=== PATIENT | female | born 1960 | race Caucasian/White ===

== ENCOUNTER → 2020-11-13 15:50 | Outpatient (BNVA) | payer SELFPAY | PROVIDERS: Referring Provider Nurse Practitioner Family; Visit Provider Specialist | DX: M25.551 Pain in right hip (principal); Z96.642 Presence of left artificial hip joint | CPT/HCPCS: 73502 ==

== ENCOUNTER 2020-12-06 15:19 | Outpatient (CLI) | payer SELFPAY ==
--- NOTE | 2020-12-06 15:24 | MR_ITS ---
WS: [id number] MRI RIGHT HIP NONCONTRAST TECHNIQUE: Axial T1, axial T2 fat sat, coronal T1, coronal STIR, sagittal T2 fat sat, sagittal T1, an d sagittal T2 fat sat, of both hips. CLINICAL INFORMATION: hip pain COMPARISON: November 13, 2020 FINDINGS: Postoperative changes left JAVIER. Advanced osteoarthritis right hip with joint space narrowing. Slight hypertrophic spurring about the right acetabulum. Minimal subchondral cystic change involving the femoral head and adjacent acetabulum. No articular surface edema right femoral head. No evidence of avascular necrosis or subchondral collapse. A few small subchondral erosions involving the femoral head and neck. No significant joint effusion. Right proximal femoral shaft is normal in appearance. Normal bone julien ow signal involving the bony pelvis and sacrum. Mild degenerative arthritis sacroiliac joints. Tiny T 2 hyperintense lesion in the right ilium likely incidental degenerative cyst or hemangioma measuring 7 mm. No inguinal lymphadenopathy. Normal pubic rami. Sigmoid diverticulosis. MR/MR hip RT wo con* [id number] IMPRESSION: 1. Moderate to advanced degenerative arthritis right hip with joint space narr owing. 2. A few subchondral degenerative cysts involving the right femoral head and n klaudia. No evidence of avascular necrosis or subchondral collapse. No significant edema. 3. Normal right femoral neck and proximal shaft. 4. Prior postoperative changes left JAVIER. 5. No other significant findings.
== END 2020-12-06 15:20 | disposition home or self-care (01) ==
LOC: RADSHAW 15:21
PROVIDERS: PCP Nurse Practitioner Family; Visit Provider Specialist
DX: Z96.641 Presence of right artificial hip joint (principal); M16.11 Unilateral primary osteoarthritis, right hip
CPT/HCPCS: 73721

== ENCOUNTER → 2020-12-14 00:01 | Outpatient (BNVA) | payer SELFPAY | PROVIDERS: PCP Nurse Practitioner Family; Visit Provider Specialist | DX: M16.11 Unilateral primary osteoarthritis, right hip (principal); Z20.822 Contact with and (suspected) exposure to COVID-19 | CPT/HCPCS: 80053; 81000; 85025; 87635 ==

== ENCOUNTER 2020-12-19 15:49 | Observation (INO) | payer SELFPAY ==
[2020-12-14 13:36] VITALS: BMI 28.6
--- NOTE | 2020-12-14 15:49 | ANES.PREANE2 ---
Pre-Anesthetic Assessment Pre-Anesthetic Assessment: Height/Weight: Height 1.7 m Weight 83.007 kg Preop Diagnosis: Primary osteoarthritis right hip Proposed Procedure: Operation Date: 12/19/20 13:05 Proposed Procedures p Total Hip Arthroplasty 83556 M16.9(Right) - Enma Sinclair MD Was Beta Chanelle taken within 24 hours: N/A Was Clonidine taken within 24 hours: N/A Social: Social History: No alcohol and No tobacco Exam: Pre-Anes Outpt Exam: alert, oriented x 3 and clear to auscultation bilaterally Airway: Submandibular: WNL Cervical ROM: WNL MP: 1 Dentition: Full History/ROS: Other Pulmonary: Pulmonary: None reported CV/HEM: CV/HEM: HTN : : None reported Hepatic: Hepatic: None reported GI: GI: None reported Metabolic: Metabolic: Thyroid Musc/skel: Musc/skel: OA/DJD Neuropsych: Neuropsych: None reported Anesthetic Plan: ASA status: 2 Anesthesia: Regional (specify below) (spinal anesthesia) Risk of > 500 ml blood loss (7ml/kg in children): No PFSH Anesthesia PFSH: Medical History Autoimmune disorder Hypertension Hypothyroidism Surgical History H/O total hip arthroplasty Left H/O: hysterectomy Social History Smoking and tobacco status: never smoked Data Anesthesia CBC & Chem 7: 12/14/20 13:59 Cardiac Studies: No Data to Display
[2020-12-19] VITALS (14 sets, daily range): BP systolic 106–180; BP diastolic 57–116; PULSE 53–79; RESP 12–22; TEMP 35.7–37.2; O2SAT 93–100
[2020-12-19] MEDS: sodium chloride 0.9% 1,000 ML 30 ML IV (12:37)
[2020-12-19] MEDS: acetaminophen 1,000 MG/100 ML PIGGYBACK 400 MG IV ×2 (12:38→20:13)
[2020-12-19] MEDS: CELEcoxib 100 mg Capsule 400 MG PO (12:50)
[2020-12-19] MEDS: vancomycin 1,000 MG in sodium chloride 0.9% 250 ML 250 MG IV (13:01)
--- NOTE | 2020-12-19 13:04 | P.ANESUD_ITS ---
Pre-Anesthetic Update Pre-Anesthetic Assessment: Date of Surgery/Procedure: 12/19/20 Preop Serina gnosis: Primary osteoarthritis right hip Proposed Procedure: Operation Date: 12/19/20 12:30 Proposed Procedures p Total Hip Arthroplasty 38597 M16.9(Right) - Enma Sinclair MD Any changes to Pre-Anesthetic Assessment?: No Last Intake: Intake Last Liquid Date 12/18/20 Last Liquid Time 20:00 Last Solid Date 12/18/20 Last Solid Time 18:00 Vitals: Temperature 97.5 F L 12/19/20 12:24 Temperature Source Temporal Artery S can 12/19/20 12:24 Pulse Rate 71 12/19/20 12:24 Respiratory Rate 18 12/19/20 12:24 Blood Pressure 180/116 12/19/20 12:24 Blood Pressure Luz Maria n 137 12/19/20 12:24 Pulse Oximetry 97 12/19/20 12:24 Oxygen Delivery Me thod 12/19/20 12:25 Exam: Pre-Anes Outpt Exam: alert, oriented x 3 and clear to auscultation bilaterally Cardiac Studies: No Data to Display
--- NOTE | 2020-12-19 13:48 | P.HPUD_ITS ---
Surgery/Procedure H&P Update DATE OF PROCEDURE: December 19, 2020 DATE H&P PERFORMED: 12/14/20 H&P UPDATE INFORMATION: I have reviewed H&P completed within last 30 days, I have examined patient prior to procedure, No changes to prior documentation and H&P is in [facility] EMR on date indicated PREOP DIAGNOSIS: Primary osteoarthritis right hip PLANNED PROCEDURE: Operation Date: 12/19/20 12:30 Proposed Procedures p Total Hip Arthroplasty 87480 M16.9(Right) - Enma Sincalir MD Related Problem List Diagnoses (1) Osteoarthritis of right hip: Qualifiers: Osteoarthritis type: primary Qualified Code(s): M16.11 - Unilateral primary osteoarthritis, right hip
[2020-12-19 14:59] LABS: Add Urine Microscopic? NO; Charge for UA Resulting for Rev
[2020-12-19] MEDS: vancomycin 1,000 MG SDV 1000 MG XX (15:04)
[2020-12-19] MEDS: vancomycin 1,000 MG SDV 1000 MG IRRIGATION (15:05)
[2020-12-19 15:11] LABS: Bilirubin Urine Neg (Negative); Blood Urine Neg (Negative); Glucose Urine UA Norm (Normal); Ketones Urine Negative (Negative); Leukocyte Esterase Urine Negative (Negative); Nitrate Urine Negative (Negative); Protein Urine Neg (Negative); Specific Gravity, Urine 1.005 (1.005-1.030); Sulfosalicylic Acid Urine Negative (Negative); Urine Appearance Clear (CLEAR); Urine Color Straw (Yellow); Urobilinogen Urine Norm (Negative); pH Urine 8 (5-7)
--- NOTE | 2020-12-19 16:50 | XR_ITS ---
WS: [id number] XR pelvis 1-2V* [id number] REASON FOR EXAM: S/P JAVIER FINDINGS: Total right hip arthroplasty. The components of the arthroplasty are in proper position and alignment. No bony abnormality. XR/XR pelvis 1-2V* [id number] IMPRESSION: Total right hip arthroplasty without abnormality.
--- NOTE | 2020-12-19 16:52 | PM.OP ---
Operative Report Date of procedure: December 19, 2020 Pre-op Diagnosis: Primary osteoarthritis right hip Post-op diagnosis: same Post-op Findings: Significant osteoarthritic changes about the hip. Procedure Done: Right total hip arthroplasty Implants: The Susan total hip system with the following implants: A 52 mm by E Trident II solid back acetabular shell, an MDM cementless liner 42 mm inner diameter by E alpha code and Accolade II size 4 127 degree neck angle hip stem with a 28 mm outer diameter -2.7 mm neck offset and a restorationism X3 insert size 28 mm inner diameter by 42E Specimens removed/disposition: Femoral head, disposed of Pathology: none sent Surgeon: Enma Sinclair Refrigerator Repair Technician: [employer] [facility] operating room technicians Anesthesia: MAC (With spinal, ASA 2) Estimated blood loss (mL): 100 IV fluids (mL): 1,500 Urine output (mL): 450 Complications: None Findings: Stable at 90 degrees of flexion with 80 degrees of internal rotation and 30 degrees of adduction, stable to toe pain, and stable to external rotation.. Equal. Condition: stable Disposition: PACU (Then to floor for postoperative pain management and rehabilitation.) Brief History: This 60-year-old woman presented to my office with difficulty ambulating and performing activities of daily living. The patient was status post total hip arthroplasty on the opposite side elsewhere. This hip was causing her enough issues that she wanted to proceed with right total hip arthroplasty. The risks and complications of this were discussed with her. Questions were answered. Consents were signed. Procedure: Patient was brought to the operating theater. She was transferred to the operating room table and subsequently administered a spinal anesthesia with MAC, ASA 2. Following administration of adequate anesthesia, the patient was placed in full lateral position and held in position with a pegboard. The patient's lower extremity was then prepped and draped in usual fashion utilizing DuraPrep. It was draped free. Following prepping and draping a surgical pause was performed. At the time of surgical pause, we identified the site and side of surgery. We also identified the patient and preoperative surgical markings. Confirmation was made of equipment availability. Additionally, the patient's preoperative IV antibiotic, vancomycin 1 g, was confirmed as being given in a timely fashion and being the appropriate antibiotic. She received TXA 1 g preoperatively as well. Following the surgical pause, an incision was made centering over the patient's greater trochanter continuing proximally and distally as necessary to allow access to the hip joint. Dissection continued through skin and soft tissues using a scalpel, and hemostasis was obtained using electrocautery. The tensor fascia ileana was identified and incised longitudinally. Sciatic nerve was identified and protected throughout the surgical procedure. A Charnley U retractor was placed after the tensor fascia ileana had been incised longitudinally, and the sciatic nerve had been identified. The piriformis muscle was identified and tagged. Piriformis muscle along with the remaining short external rotators were then incised from the posterior aspect of the hip joint. These were retracted posteriorly. The capsule was entered in a T-type fashion with the edges being tagged. The hip was then dislocated. Following hip dislocation, a femoral neck osteotomy was accomplished in the appropriate position. We then evaluated the acetabulum. The femur was retracted anteriorly. Soft tissues were retracted and the labrum was removed. We then began reaming. We reamed to 51 mm to allow for a size 52 mm acetabular shell. The acetabular component was impacted into position. It was noted that the acetabulum matched the bony anatomy. The cup was noted to seat nicely and had good fixation upon impact. The MDM cementless liner was impacted into position and care was taken to assure that it completely seated. Also, we confirmed that the acetabular insert was completely seated prior to addressing the femur. Attention was directed to the proximal femur. The proximal femur was lifted out of the wound. A canal finder was passed, and we then used the reamer to lateralize. We then began broaching. We broached sequentially and had excellent fit and fill with the size 4 Accolade II 127 degree femoral component. A trial reduction was accomplished initially with a -4.0 mm offset femoral head and subsequently with a -2.7 mm offset femoral head once the size 4 broach was placed in position. The patient was stable with this construct, and it was not felt that we had increased her leg length. With this in place, we had the above stabilities, and at that time, we felt that we had restored leg lengths. We also felt that we had excellent stability noted above. Therefore, trial components were removed after the hip was dislocated. The size 4 Accolade II 127 degree neck angle hip stem was impacted into position without difficulty and onto this was placed a -2.7 mm offset by 28 mm outer diameter femoral head inside of the MDM size 42E insert with a 28 mm inner diameter. With this construct, we had the above-noted stability. The stem was noted to seat nicely prior to placement of the femoral head. The wound was copiously irrigated with Betadine. At this time, with all components in appropriate position, the hip was reduced. Following reduction of the prosthesis once again, we confirmed the stability of the hip. Leg lengths were also felt to be satisfactory. Being satisfied with the prosthesis, attention was directed to closure. Closure was accomplished with 0 Vicryl in the capsular tissues. Piriformis was reattached with 0 Vicryl as well. Tensor fascia ileana was closed with 0 Vicryl in an interrupted fashion. The subcutaneous tissues were closed with a deep layer of 0 Vicryl followed by 2-0 Monocryl. Vancomycin powder and a Gelfoam thrombin mixture was placed into the wound as well. The skin was closed with a running 3-0 Monocryl followed by Dermabond, Prineo, and OpSite. The patient was placed in an abduction pillow. She was returned the Recovery Room in a satisfactory condition and will be discharged to the floor for postoperative rehabilitation and pain management. There were no complications. Associated Problem List Diagnoses (1) Osteoarthritis of right hip: Qualifiers: Osteoarthritis type: primary Qualified Code(s): M16.11 - Unilateral primary osteoarthritis, right hip
--- NOTE | 2020-12-19 16:54 | P.PCN_ITS ---
PACU note PACU note: VSS, Good respiratory effort, report to EMPLOYMENT TRAINING SPECIALIST Post-Anesthesia Exam: awake
--- NOTE | 2020-12-19 16:54 | PM.PACU ---
PACU note PACU note: VSS, Good respiratory effort, report to PRODUCT MANAGER FINANCIAL SERVICES Post-Anesthesia Exam: awake
[2020-12-19] MEDS: chlorhexidine gluconate 0.12% Btl 473 mL 30 ML MUCOUS MEM ×2 (18:31→22:44)
[2020-12-19] MEDS: mupirocin oint 22 gm 1 APPLIC NASAL (18:31)
[2020-12-19] MEDS: sennosides-docusate Tablet 2 TAB PO (18:32)
[2020-12-19] MEDS: iron polysaccharide complex 150 mg Capsule PO (18:32)
[2020-12-19] MEDS: oxyCODONE 5 mg IR Tab/Cap PO ×2 (18:32→22:43)
[2020-12-19] MEDS: calcium carbonate 500 mg Chew Tablet 1000 MG PO (18:32)
[2020-12-19] MEDS: CELEcoxib 200 mg Capsule PO (22:44)
[2020-12-20] VITALS (10 sets, daily range): BP systolic 132–179; BP diastolic 82–97; PULSE 77–94; RESP 17–20; TEMP 36.6–37.2; O2SAT 91–97
[2020-12-20 02:36] LABS: Basophils % 0.3 %; Hematocrit 41.5 % (37.0-47.0); Hemoglobin 13.1 g/dL (11.5-15.3); Lymphocytes # 1.4 10^3/uL (0.8-4.8); Lymphocytes % 11.5 %; Mean Corpuscular HGB Conc 31.6 g/dL (30.0-36.0); Mean Corpuscular Hemoglobin 30.3 pg (28.0-34.0); Mean Corpuscular Volume 95.8 fl (81-99); Mean Platelet Volume 8.8 fL (7.4-10.4); Monocytes # 0.3 10^3/uL (0.2-0.9); Monocytes % 2.6 %; Neutrophils # 9.97 10^3/uL (1.8-7.7); Neutrophils % 85.3 %; Nucleated Red Blood Cells % 0 %; Platelet Count 418 10^3/cmm (130-400); Red Blood Count 4.33 10^6/uL (4.1-5.3); White Blood Count 11.7 10^3/uL (4.0-10.0)
[2020-12-20] MEDS: oxyCODONE 5 mg IR Tab/Cap PO ×2 (02:45→06:45)
[2020-12-20 03:09] LABS: Blood Urea Nitrogen 16 mg/dL (8-23); Calcium 9.1 mg/dL (8.5-10.5); Carbon Dioxide 21 mmol/L (22-29); Chloride 104 mmol/L (98-107); Glomerular Filtration Rate 85.1 mL/min (90-130); Glucose 133 mg/dL (65-115); Osmolality Calculated 287 mOsm/kg (285-295); Sodium 137 mmol/L (136-145)
[2020-12-20] MEDS: acetaminophen 1,000 MG/100 ML PIGGYBACK 400 MG IV (03:49)
[2020-12-20] MEDS: iron polysaccharide complex 150 mg Capsule PO (08:33)
[2020-12-20] MEDS: aspirin 325 mg EC Tablet PO (09:31)
[2020-12-20] MEDS: calcium carbonate 500 mg Chew Tablet 1000 MG PO (09:31)
[2020-12-20] MEDS: cholecalciferol (vitamin D3) 1,000 unit Tablet 1000 UNIT PO (09:31)
[2020-12-20] MEDS: mupirocin oint 22 gm 1 APPLIC NASAL (09:32)
[2020-12-20] MEDS: multivitamin therapeutic Tablet 1 TAB PO (09:32)
[2020-12-20] MEDS: sennosides-docusate Tablet 2 TAB PO (09:32)
[2020-12-20] MEDS: chlorhexidine gluconate 0.12% Btl 473 mL 30 ML MUCOUS MEM ×2 (09:32→13:05)
--- NOTE | 2020-12-20 10:00 | PC.CHAP ---
Pastoral Care Encounter/Spiritual Assessment Type of Contact [] Declined ncr operator visit [] Patient/Family/Request visit [] Outpatient visit [] Follow-up visit [] Physician referral [] Code/Alert [X] Routine visit [] Staff referral [] Actively dying [] Patient sleeping [] Family support [] [] Out of room [] Palliative care [] [] Receiving care in room [] Pre-surgical visit [] Trauma [] Long length of stay [] ICU visit [] Other: Relational/Emotional Strength [X] Patient feels connected with others/family/visitors/staff [] Distress [] Loneliness/isolation [] Abandonment Spirituality of Patient [] Person of Shaniqua [] Attends Orthodox of their Shaniqua [] Believes in Prayer [] Reads Bible or Yarsani materials [] There are Spiritual issues to be addressed Perfect Bind Machine Operator Interventions [] Prayer [] Active listening [] Non-anxious presence [] Spiritual/emotional support [] Crisis/trauma care [] Spiritual counseling [] Bereavement support [] Provided bereavement packet [] Provided Bible/devotional materials [] Provided toy/stuffed animal, coloring book to patient or family member [] Provided Communion [] Anointing/[place] [] Salvation [] Completed spiritual assessment [] Other: Impact on Illness or Injury [] Angry [] Fearful [] Anxious [] Often cries [] Exhaustion [] Unable to work [] Unable to attend episcopalian [] Unable to walk/stand [] Unable to read [] Unable to drive [] Unable to eat/drink [] Unable to sleep [] Unable to be with family [] Patient intubated [] Other: Summary PATIENT REFUSHED PRAYER Time spent with patient
[2020-12-20] MEDS: HYDROcodone-acetaminophen 10-325 mg Tablet 1 TAB PO (10:46)
--- NOTE | 2020-12-20 11:08 | PC.PHAR ---
pt states she takes care of her medications-pt states she takes the medications entered
[2020-12-20] MEDS: vancomycin 1,000 MG in sodium chloride 0.9% 250 ML 250 MG IV (11:32)
[2020-12-20] MEDS: CELEcoxib 100 mg Capsule 200 MG PO (13:04)
--- NOTE | 2020-12-20 15:21 | PM.DCS ---
Discharge Providers Date of Admission: 12/19/20 15:49 Date of Discharge: December 20, 2020 Attending Provider at Admission: Enma Sinclair MD Attending Provider at Discharge: Enma Sinclair MD Primary Care Provider: JOHNATHON Pulliam Diagnoses at Discharge Discharge Diagnosis (1) Osteoarthritis of right hip: Status: Acute Qualifiers: Osteoarthritis type: primary Qualified Code(s): M16.11 - Unilateral primary osteoarthritis, right hip (2) History of total right hip arthroplasty: Status: Acute Permanent problem details: Right total hip arthroplasty utilizing the following Implants: The [employer] total hip system with the following implants: A 52 mm by E Trident II solid back acetabular shell, an MDM cementless liner 42 mm inner diameter by E alpha code and Accolade II size 4 127 degree neck angle hip stem with a 28 mm outer diameter -2.7 mm neck offset and a anglican X3 insert size 28 mm inner diameter by 42E Reason for Visit Reason for Visit: Right total hip arthroplasty Brief History: This 60-year-old woman was in November 13, 2020. At that time, she had complained of significant hip pain over the past several months prior to being seen. She denied any injury. The pain was primarily in the groin, and she wished to discuss treatment options. After discussion and evaluation the patient's x-rays, we elected to proceed with an MRI to evaluate for avascular necrosis or other reason for her sudden onset of hip pain. MRI was negative for avascular necrosis. After discussion, the patient wished to proceed with total hip arthroplasty on the right. She has also had left total hip arthroplasty in the past. Hospital Course Hospital Course To the hospital for right total hip arthroplasty. This was accomplished uneventfully. The patient was admitted to the hospital for postop she did well with therapy. She was seen and evaluated on the first postoperative day. At that time, she was found to be ambulating well. Her thigh was soft and nontender. She had been up with a walker and felt ready to be discharged to home. Medication regimen was changed to provide better pain management for the patient. She felt ready to be discharged home. Home health has been arranged. The patient therefore was discharged home with home health. Physical Exam Const: COMMON NORMALS: no acute distress, average body habitus, patient oriented x3 and alert GENERAL APPEARANCE: cooperative and comfortable ORIENTATION/CONSCIOUSNESS: Yes awake HENMT: COMMON NORMALS: normocephalic and atraumatic HEAD & SCALP: normocephalic and atraumatic Eye: GENERAL EYE: appearance normal, both eyes and all related structures Chest: COMMONS NORMALS: normal inspection of the chest Resp: COMMON NORMALS: normal respiratory effort EFFORT & INSPECTION: Yes able to speak in complete sentences and Yes symmetric chest movement Extremity: RIGHT LOWER EXTREMITY: Yes hip joint (Thigh is soft and nontender.) Right hip: Yes inspection (No ecchymosis.), Yes palpation (No significant discomfort.), Yes ROM (Not evaluated.) and Yes neurovascular exam (Intact with no evidence of DVT) Neuro: COMMON NORMALS: patient oriented x3 SENSORIUM/ORIENTATION: Yes alert Psych: COMMON NORMALS: mental status grossly normal APPEARANCE: Yes grossly normal ATTITUDE: Yes calm and Yes engaged ATTENTION/CONCENTRATION: Yes attention grossly intact Skin: COMMON NORMALS: no rashes or lesions noted GENERAL SKIN EXAM: no rashes or lesions noted Discharge Data Data Completed and Pending: Completed Studies During Hospitalization Category Date Time Status XR pelvis 1-2V* 7 2170 Routine Exams 12/19/20 16:50 Completed Labs from last 24 hours 12/20/20 12/20/20 02:17 02:17 WBC 11.7 H RBC 4.33 Hgb 13.1 Hct 41.5 MCV 95.8 MCH 30.3 MCHC 31.6 RDW 12.0 L Plt Count 418 H MPV 8.8 Neut % (Auto) 85.3 Lymph % (Auto) 11.5 [place] % (Auto) 2.6 Eos % (Auto) 0.0 Baso % (Auto) 0.3 Neut # (Auto) 9.97 H Lymph # (Auto) 1.4 [place] # (Auto) 0.3 Eos # (Auto) 0.0 Baso # (Auto) 0.0 Nucleated RBC % (a uto) 0 Nucleated RBCs # 0.0 Sodium 137 Potassium 4.0 Chloride 104 Carbon Dioxide 21 L Anion Gap 16.0 BUN 16 Creatinine 0.7 GFR Calculation 85.1 L Glucose 133 H Calculated Osmolal ity 287 Calcium 9.1 Vitals: Last Vital Signs Temp 98.6 F 12/20/20 11:24 Pulse 87 12/20/20 11:24 Resp 18 12/20/20 11:24 BP 178/91 12/20/20 11:24 Pulse Ox 94 12/20/20 11:24 Discharge Plan Discharge Patient Disposition: Home Health Service Condition: Stable Prescriptions: New acetaminophen 500 mg Tablet 1,000 mg PO Q8H 15 Days Qty: 90 RF: 0 aspirin 325 mg Tablet,Delayed Release (Dr/Ec) 325 mg PO DAILY 30 Days Qty: 0 RF: 0 MOBILITY ARCHITECT MANAGER Thyroid 60 mg Tablet 60 mg PO DAILY Qty: 0 RF: 0 Benazepril-Hydrochlorothiazide 10 mg PO DAILY Qty: 0 RF: 0 celecoxib 200 mg capsule 200 mg PO DAILY 30 Days Qty: 30 RF: 0 hydrocodone-acetaminophen 10-325 mg Tablet 1 tab PO Q6H PRN (Reason: Moderate Pain) 7 Days Qty: 30 RF: 0 Continued acetaminophen 500 mg Tablet 1,000 mg PO Q4H PRN (Reason: Pain) RF: 0 benazepril-hydrochlorothiazide 10-12.5 mg Tablet 1 tab PO DAILY RF: 0 nitrofurantoin monohyd/m-cryst 100 mg capsule 100 mg PO BID RF: 0 MOBILITY ARCHITECT MANAGER Thyroid 60 mg tablet 60 mg PO QAM RF: 0 Cleanse Aloe Tabs 1 tab PO DAILY RF: 0 DHEA 1 cap PO DAILY RF: 0 Fish Oil 1 cap PO DAILY RF: 0 vitamin D3-vitamin K2 2 tab PO DAILY RF: 0 Held meloxicam 15 mg tablet 15 mg PO DAILY RF: 0 Hold Instructions: Resume on 01/17/21. You may resume meloxicam after completing 30 days of Celebrex. Discontinued naproxen sodium 220 mg Tablet 440 mg PO Q12H PRN (Reason: Pain) RF: 0 Discharge Orders: Discharge Order (Routine); Ordered 12/20/20 Ordered By: Enma Sinclair Referrals: [facility] [Other] Enma Sinclair MD [Physician] - 01/08/21 2:00 pm Discharge Diet: Advance as tolerated and Usual diet Discharge Activity: Increase activity as tolerated, Limit activity as instructed and Use walker/crutches as instructed Patient Instructions: Acetaminophen (By mouth), Hydrocodone/Acetaminophen (By mouth) (Vicodin, [place], Lortab), Aspirin (By mouth), Celecoxib (By mouth) (Selebreks, eliksib), Osteoarthritis (DC), Opioid Safety Activity Restrictions/Additional Instructions: Posterior hip precautions, ice to right hip. Weightbearing as tolerated. Gait training with physical therapy. Reduce Tylenol dosage for each tablet of hydrocodone. Discharge Attestations Time Spent in Discharge Care*: greater than 30 min Specific Discharge Activities: educating patient, documenting/other paperwork and evaluating patient/reviewing data Quality Metrics Clinical Quality Measures During this hospital stay, did patient experience: None Coding Level of Care Code Acute Chg [facility] note Exam Comprehensive Diagnoses Osteoarthritis of right hip M16.11 Osteoarthritis type: primary History of total right hip arthroplasty Z96.641
--- NOTE | 2020-12-20 16:20 | PC.NURSE ---
PT HAS DONE ALRIGHT FOR ME TODAY. PTS PAIN WAS SOME WHAT OUT OF CONTROL WITH THE OXYCODONE. DR DELA CRUZ WAS NOTIFIED AND SWITCHED PAIN MEDICATION TO HYDROCODONE. PT IS DOING WELL WITH THIS MEDICATION. PT IS AMBULATING. STILL HAS SOME MINIMAL COMPLAINTS OF PAIN BUT IT IS MUCH BETTER. PT WILL DISCHARGE TODAY PER DR HECTOR. DISCHARGE PAPERWORK WAS GONE OVER WITH PT. MEDICATIONS WERE SENT TO PHARMACY OF PTS CHOICE. ALL QUESTIONS ANSWERED. IV WAS REMOVED. PT TOLERATED WELL. PT SAFELY WHEELED OUT BY THIS NURSE AND THE CHARGE NURSE.
--- NOTE | 2020-12-20 16:49 | ANE.PACU2 ---
Inpatient post-anesthesia follow up: Airway intact: Yes Vital signs: Temperature 98.4 F Pulse Rate 94 Respiratory Rate 18 Blood Pressure 132/82 Pulse Oximetry 96 Oxygen Delivery Me thod Room Air Oxygen Flow Rate 3 Fraction of Inspir ed Oxygen Hydration adequate: Yes Nausea and vomiting: No Pain level: 3 Mental status: Baseline
--- NOTE | 2020-12-20 19:57 | PC.NURSE ---
Upon start of shift patient requested to have suggs removed. Hospitalist contacted. Response was to contact surgeon. Surgeon contacted at [phone]. Recieved order to remove suggs. Suggs removed at approximately 2100. Suggs intact, with 10mL of saline in balloon. Patient tolerated procedure well. total of 600mL urine output. Urine is yellow in appearance, no odor.
--- NOTE | 2020-12-21 10:22 | PC.SOCIAL ---
discharge follow up call made, spoke with patient. patient picked up celebrex and hydrocodone from the pharmacy and she is taking as directed with pain relief. patient has tylenol and asa at home that she is taking. patient will get benazepril and thryoid today. patient is aware to hold meloxicam until 01-17 and dc naproxen. patient has follow up appointment with dr. turcios 01-08, she has transportation to appointment. home health will be out to her house today to begin PT. patient has been using walker and ambulating without difficulty.
== END 2020-12-20 16:24 | disposition home health service (06) ==
LOC: MEDSURG 16:17
PROVIDERS: Admitting Provider Specialist; PCP Nurse Practitioner Family; Visit Provider Specialist
PROC: (CPT 27130; principal; 2020-12-19 12:20)
DX: M16.11 Unilateral primary osteoarthritis, right hip (principal); I10 Essential (primary) hypertension; E03.9 Hypothyroidism, unspecified
CPT/HCPCS: 27130; 36415; 51702; 72170; 80048; 81003; 85025; 97116; 97161; 97165; C1776; G0378; J1100; J2250; J2405; J2704; J3010; J3370; J3490; J7030; J7050

== ENCOUNTER → 2021-01-08 14:08 | Outpatient (BNVA) | payer SELFPAY | PROVIDERS: PCP Nurse Practitioner Family; Visit Provider Specialist | DX: Z96.641 Presence of right artificial hip joint (principal) | CPT/HCPCS: 73502 ==